=== PATIENT | male | born 1970 | race Caucasian/White ===

== ENCOUNTER 2018-04-13 12:13 | Emergency (ER) | payer BC ==
[~2018-04-13] VITALS: Ht 172.7 cm; Wt 93.0 kg
[2018-04-13] MEDS ORDERED: NACL 0.9% 1,000 ML IV ONE (12:17)
[2018-04-13 12:21] VITALS: BP_SYST 154
[2018-04-13] MEDS ORDERED: ONDANSETRON HCL 4 MG/2 ML VIAL IVP ONE (12:30)
[2018-04-13] MEDS ORDERED: MORPHINE 4 MG/ML INJ. SYRINGE IVP ONE (12:30)
--- NOTE | 2018-04-13 12:40 | NUR ---
Pt placed in bed 1
--- NOTE | 2018-04-13 12:41 | NUR ---
Pt arrived to ED with complaints of a sharp pain in pt's lower abd that does not radiate. Pt stated that the pain started yesterday 04/12/18 approx 30 minutes after lunch was consumed. Pt stated that he assumed it was gas, but did not resolve so decided to come in the the ED. Will continue to monitor pt.
--- NOTE | 2018-04-13 12:42 | NUR ---
ER at bedside examining patient.
[2018-04-13 12:43] LABS: BILIRUBIN,URINE NEGATIVE (NEGATIVE); BLOOD, URINE 2+ (NEGATIVE); CLARITY/URINE CLEAR (CLEAR); COLOR,URINE YELLOW (YELLOW); GLUCOSE,URINE NEGATIVE (NEGATIVE); KETONES,URINE NEGATIVE (NEGATIVE); LEUKOCYTE ESTERASE ,URINE NEGATIVE (NEGATIVE); NITRITE, URINE NEGATIVE (NEGATIVE); PROTEIN URINE TRACE (NEGATIVE); UROBILINOGEN,URINE 0.2 (0.2-1.0)
[2018-04-13 12:52] LABS: BACTERIA,URINE RARE /HPF (None Seen); MUCUS,URINE 1+ /LPF (None Seen); WBC,URINE 0-3 /HPF (0-3)
[2018-04-13 13:13] LABS: BASOPHILS # (AUTO) 0.1 K/uL (0.0-0.2); BASOPHILS % (AUTO) 0.6 % (0.0-2.0); EOSINOPHILS # (AUTO) 0.2 K/uL (0.0-0.4); EOSINOPHILS % (AUTO) 1.4 % (0.0-4.0); HEMATOCRIT 46.2 % (36-54); HEMOGLOBIN 16.2 g/dL (14.0-18.0); LYMPHOCYTES # (AUTO) 2.9 K/uL (1.0-5.5); LYMPHOCYTES % (AUTO) 16.4 % (20.5-51.5); MEAN CORPUSCULAR HEMOGLOBIN 32 pg (27-31); MEAN CORPUSCULAR HGB CONC 35 % (32-36); MEAN CORPUSCULAR VOLUME 91 fL (79.0-98.0); MONOCYTES # (AUTO) 1.1 K/uL (0.0-1.0); NEUTROPHILS # (AUTO) 13.5 K/uL (1.8-7.7); NEUTROPHILS % (AUTO) 75.6 % (40.0-70.0); PLATELET COUNT (AUTO) 268 K/uL (130-430); RED BLOOD CELL COUNT(AUTO) 5.07 MIL/uL (4.2-6.2); RED CELL DISTRIBUTION WIDTH 12.8 % (9.0-15.0); WHITE BLOOD COUNT (AUTO) 17.8 K/uL (4.8-10.8)
[2018-04-13 13:17] LABS: CALCIUM 9.2 mg/dL (8.4-11.0); CREATININE 0.82 mg/dL (0.55-1.30); POTASSIUM 3.8 mmol/L (3.5-5.1)
[2018-04-13 13:20] LABS: INR 1.1 (0.80-1.20); PROTHROMBIN TIME 11.5 SECS (9.5-12.5)
[2018-04-13 13:21] LABS: ALBUMIN 4.5 g/dL (3.4-4.8); TOTAL BILIRUBIN 1.8 mg/dL (0.0-1.0)
[2018-04-13] MEDS ORDERED: PIPERACILLIN/TAZO 3.375 GM in NS 50 ML IV ONE (14:00)
--- NOTE | 2018-04-13 14:02 | NUR ---
Xray Xray at bedside with pt performing an XRay of pt's abd. No signs of acute distress. Will continue to monitor.
[2018-04-13] MEDS ORDERED: PIPERACILLIN/TAZOBACTAM 3.375 GM/VIAL (ZOSYN) IV ONE (14:17)
[2018-04-13 15:05] VITALS: BP_SYST 140
--- NOTE | 2018-04-13 15:05 | NUR ---
Patient given written and verbal discharge instructions and verbalizes understanding. ER MD discussed with patient the results and treatment provided. Patient in stable condition. ID arm band removed. IV catheter removed intact and dressing applied, no active bleeding. Rx of flagyl, bactrim and norco given. Patient educated on pain management and to follow up with PMD. Pain Scale 3. Opportunity for questions provided and answered.
== END 2018-04-13 15:05 | disposition home or self-care (01) ==
LOC: SED 12:13
DX: K57.92 Diverticulitis of intestine, part unspecified, without perforation or abscess without bleeding (principal); E78.5 Hyperlipidemia, unspecified; I10 Essential (primary) hypertension; Z88.6 Allergy status to analgesic agent
CPT/HCPCS: 36415; 71045; 74176; 80053; 81000; 82150; 83605; 83690; 85025; 85610; 85730; 87040; 96365; 96375; 99285; J2270; J2405; J2543; J7030